=== PATIENT | female | born 1990 | race Caucasian/White ===

== ENCOUNTER 2016-11-17 10:10 | Inpatient (IN) | payer OTHER ==
[~2016-11-17 10:10] MED LIST: ATARAX,VISTARIL25 MG PO; CELEXA10 MG PO; CORTISONE57 GM TP; DANDRUFF SHAMP TP; NIX 5% CREAM60 GM TP; PROAIR HFA8.5 GM IH; REMERON15 M2 PO
[2016-11-17] MEDS ORDERED: ADDERALL20 MG PO (11:59)
[2016-11-17] MEDS ORDERED: ZUBSOLV 8.6-2.1 EACH SL (11:59)
[2016-11-17] MEDS ORDERED: CLONAZEPAM1 MG PO (12:00)
[2016-11-17] MEDS ORDERED: SOMA350 MG PO (12:00)
[2016-11-17] MEDS ORDERED: GABAPENTIN300 MG PO (12:00)
[2016-11-17] MEDS ORDERED: CLARITIN10 M3 PO (12:01)
[2016-11-17 12:02] LABS: HEMATOCRIT 30.7 % (36.0-46.0); MCH 21.2 PG (29.0-34.0); MCHC 30.9 G/DL (30.0-36.0); MCV 68.5 FL (83-99); MEAN PLAT.VOLUME 11.9 uM^3 (9.5-12.4); PLATELET COUNT 241 K/uL (156-360); RBC DIS.WIDTH-CV 18.3 % (11.8-14.6); RBC DIS.WIDTH-SD 44.3 % (39-53); RED BLOOD COUNT 4.48 M/uL (3.80-5.20); WHITE BLOOD COUNT 12.2 K/uL (4.1-10.2)
[2016-11-17] MEDS ORDERED: OXYCODONE HCL10 MG PO (12:03)
[2016-11-17] MEDS ORDERED: TOPAMAX25 MG PO (12:03)
[2016-11-17] MEDS ORDERED: EFFEXOR XR150 MG PO (12:04)
[2016-11-17] MEDS ORDERED: TRAZODONE HCL150 MG PO (12:04)
[2016-11-17 12:05] LABS: CHLORIDE 103 mEq/L (99-109); POTASSIUM 2.9 mEq/L (3.7-5.4); SODIUM 136 mEq/L (136-147)
[2016-11-17 12:07] LABS: GLUCOSE 96 mg/dL (70-99)
[2016-11-17 12:08] LABS: ANION GAP 13 MEQ/L (2-14)
[2016-11-17 12:10] LABS: SERUM ETHYL ALCOHOL < 10 mg/dL
[2016-11-17 12:11] LABS: GFR ESTIMATE (CALCULATED) > 59 mL/min/; UREA NITROGEN (BUN) 13 mg/dL (9-23)
[2016-11-17 13:05] LABS: AMPHETAMINE PRESUMPTIVE POSITIVE (500 ng/mL); BENZODIAZEPINES PRESUMPTIVE POSITIVE (150 ng/mL); COCAINE PRESUMPTIVE POSITIVE (150 ng/mL); METHADONE PRESUMPTIVE POSITIVE (200 ng/mL); METHAMPHETAMINE PRESUMPTIVE POSITIVE (500 ng/mL); OPIATES (MORPHINE) PRESUMPTIVE POSITIVE (100 ng/mL); PHENCYCLIDINE PRESUMPTIVE POSITIVE (25 ng/mL); THC CANNABINOIDS NEGATIVE (50 ng/mL); TRICYCLIC ANTIDEPRESSANTS NEGATIVE (300 ng/mL)
[2016-11-17 13:06] LABS: BARBITURATES NEGATIVE (200 ng/mL); INTERNAL CONTROLS VALID? YES; OXYCODONE PRESUMPTIVE POSITIVE (100 ng/mL); PROPOXYPHENE NEGATIVE (300 ng/mL)
[2016-11-17 13:07] LABS: ADD MEDTOX COMMENT Y
[2016-11-17 13:49] LABS: BENZODIAZEPINES, URINE SCREEN POSITIVE (200 ng/mL); PHENCYCLIDINE QUANT VALUE 0 NG/ML
[2016-11-18 13:57] VITALS: BP 124/68
[2016-11-18 14:28] VITALS: BP 124/68
[2016-11-18 15:28] VITALS: BP 124/76
[2016-11-19 07:56] VITALS: BP 125/63
[2016-11-24] MEDS ORDERED: DESYREL 150 MG150 MG PO (09:12)
== END 2016-11-19 11:40 | disposition left against medical advice (07) | DRG 882 ==
LOC: EME 10:10 → 1WEST 11-18 09:49 → EDOF 11-18 09:49 → 1WEST 11-18 14:00
DX: F43.24 Adjustment disorder with disturbance of conduct (principal); F32.9 Major depressive disorder, single episode, unspecified; R45.851 Suicidal ideations; E87.6 Hypokalemia; F11.10 Opioid abuse, uncomplicated; F17.200 Nicotine dependence, unspecified, uncomplicated; F41.9 Anxiety disorder, unspecified; J45.909 Unspecified asthma, uncomplicated; B19.20 Unspecified viral hepatitis C without hepatic coma; F43.10 Post-traumatic stress disorder, unspecified; Z91.410 Personal history of adult physical and sexual abuse; Z91.14 Patient's other noncompliance with medication regimen
CPT/HCPCS: 80048; 84999; 85027; 90839; 99281; 99285; G0480

== ENCOUNTER 2016-11-21 13:53 | Emergency (ER) | payer OTHER ==
[~2016-11-21] VITALS: Ht 160 cm; Wt 52.3 kg
[~2016-11-21 13:53] MED LIST changes: +ADDERALL20 MG PO; +CLARITIN10 M3 PO; +CLONAZEPAM1 MG PO; +EFFEXOR XR150 MG PO; +GABAPENTIN300 MG PO; +OXYCODONE HCL10 MG PO; +SOMA350 MG PO; +TOPAMAX25 MG PO; +TRAZODONE HCL150 MG PO; +ZUBSOLV 8.6-2.1 EACH SL
[2016-11-21 14:40] VITALS: BP 141/92
[2016-11-21] MEDS ORDERED: NAPROSYN500 MG PO (16:43)
[2016-11-22] MEDS ORDERED: CLONAZEPAM2 MG PO (00:31)
[2016-11-22] MEDS ORDERED: AMPHETAMINE SAL20 MG PO (00:32)
[2016-11-22] MEDS ORDERED: SOMA350 MG PO (00:32)
[2016-11-24] MEDS ORDERED: DESYREL 150 MG150 MG PO (09:12)
== END 2016-11-21 17:33 | disposition home or self-care (01) ==
LOC: EXP 13:53 → EME 13:53 → EXP 17:33
DX: S93.401A Sprain of unspecified ligament of right ankle, initial encounter (principal); W19.XXXA Unspecified fall, initial encounter; Y93.02 Activity, running; F17.200 Nicotine dependence, unspecified, uncomplicated
CPT/HCPCS: 73610; 73630; 99281; 99284

== ENCOUNTER 2016-11-21 20:51 | Observation (INO) | payer OTHER ==
[~2016-11-21] VITALS: Ht 160 cm; Wt 55.3 kg
[~2016-11-21 20:51] MED LIST changes: +NAPROSYN500 MG PO
[2016-11-21 21:31] LABS: HEMATOCRIT 33.2 % (36.0-46.0); MCH 20.9 PG (29.0-34.0); MCHC 29.5 G/DL (30.0-36.0); MCV 70.8 FL (83-99); MEAN PLAT.VOLUME 11.1 uM^3 (9.5-12.4); PLATELET COUNT 268 K/uL (156-360); RBC DIS.WIDTH-CV 19.5 % (11.8-14.6); RBC DIS.WIDTH-SD 48.7 % (39-53); RED BLOOD COUNT 4.69 M/uL (3.80-5.20); WHITE BLOOD COUNT 8.9 K/uL (4.1-10.2)
[2016-11-21 21:33] LABS: CHLORIDE 107 mEq/L (99-109); SODIUM 140 mEq/L (136-147)
[2016-11-21 21:35] LABS: GLUCOSE 88 mg/dL (70-99)
[2016-11-21 21:37] LABS: ANION GAP 8 MEQ/L (2-14)
[2016-11-21 21:38] LABS: SERUM ETHYL ALCOHOL < 10 mg/dL
[2016-11-21 21:40] LABS: POTASSIUM 4.1 mEq/L (3.7-5.4); UREA NITROGEN (BUN) 10 mg/dL (9-23)
[2016-11-21 21:47] LABS: QUANTITATIVE HCG < 4.0 MIU/ML
[2016-11-21 21:55] LABS: SALICYLATE 11.2 MG/DL (15-30)
[2016-11-21 22:14] LABS: GFR ESTIMATE (CALCULATED) > 59 mL/min/
[2016-11-22 00:06] LABS: AMPHETAMINE NEGATIVE (500 ng/mL); BENZODIAZEPINES NEGATIVE (150 ng/mL); COCAINE NEGATIVE (150 ng/mL); METHAMPHETAMINE NEGATIVE (500 ng/mL); OPIATES (MORPHINE) PRESUMPTIVE POSITIVE (100 ng/mL); PHENCYCLIDINE NEGATIVE (25 ng/mL); THC CANNABINOIDS NEGATIVE (50 ng/mL); TRICYCLIC ANTIDEPRESSANTS NEGATIVE (300 ng/mL)
[2016-11-22 00:07] LABS: BARBITURATES NEGATIVE (200 ng/mL); INTERNAL CONTROLS VALID? YES; MEDTOX DRUG SCREEN COMMENT SENT UPSTAIRS; METHADONE NEGATIVE (200 ng/mL); OXYCODONE NEGATIVE (100 ng/mL); PROPOXYPHENE NEGATIVE (300 ng/mL)
[2016-11-22 00:08] LABS: ADD MEDTOX COMMENT Y
[2016-11-22] MEDS ORDERED: CLONAZEPAM2 MG PO (00:31)
[2016-11-22] MEDS ORDERED: SOMA350 MG PO (00:32)
[2016-11-22] MEDS ORDERED: AMPHETAMINE SAL20 MG PO (00:32)
[2016-11-22 02:45] VITALS: BP 124/81
[2016-11-22 03:15] LABS: TOTAL BILIRUBIN 0.1 mg/dL (0.0-1.0)
[2016-11-22 03:16] LABS: ALKALINE PHOSPHATASE 58 IU/L (3-129)
[2016-11-22 03:18] LABS: DIRECT BILIRUBIN 0.1 mg/dL (0.0-0.3)
[2016-11-22 04:23] LABS: OPIATES QUANTITATIVE VALUE 0 NG/ML
[2016-11-22 04:37] VITALS: BP 109/58
[2016-11-22 07:07] VITALS: BP 118/74
[2016-11-22 07:36] LABS: ALKALINE PHOSPHATASE 45 IU/L (3-129); ANION GAP 7 MEQ/L (2-14); CHLORIDE 109 MEQ/L (99-109); GFR ESTIMATE (CALCULATED) > 59 mL/min/; SAMPLE HEMOLYSIS CHECK 0; SAMPLE ICTERIC CHECK 0; SAMPLE LIPEMIA CHECK 0; SODIUM 138 MEQ/L (136-147); TOTAL BILIRUBIN 0.2 MG/DL (0.0-1.0); UREA NITROGEN (BUN) 10 mg/dL (9-23)
[2016-11-22 07:37] LABS: GLUCOSE 115 mg/dL (70-99); POTASSIUM 5.3 MEQ/L (3.7-5.4)
[2016-11-22 09:02] LABS: HEMATOCRIT 28.9 % (36.0-46.0); MCH 21.8 PG (29.0-34.0); MCHC 30.8 G/DL (30.0-36.0); MCV 70.8 FL (83-99); MEAN PLAT.VOLUME 11.6 uM^3 (9.5-12.4); PLATELET COUNT 245 K/uL (156-360); RBC DIS.WIDTH-CV 19.4 % (11.8-14.6); RBC DIS.WIDTH-SD 49.1 % (39-53); RED BLOOD COUNT 4.08 M/uL (3.80-5.20); WHITE BLOOD COUNT 6.6 K/uL (4.1-10.2)
[2016-11-24] MEDS ORDERED: DESYREL 150 MG150 MG PO (09:12)
== END 2016-11-22 12:18 ==
LOC: EME 20:51 → EDOF 11-22 01:24 → 5WEST 11-22 01:24 → EDOF 11-22 01:24 → 5WEST 11-22 02:36
PROVIDERS: Hospitalist
DX: T43.212A Poisoning by selective serotonin and norepinephrine reuptake inhibitors, intentional self-harm, initial encounter (principal); F19.10 Other psychoactive substance abuse, uncomplicated; F31.9 Bipolar disorder, unspecified; F41.9 Anxiety disorder, unspecified; Z86.19 Personal history of other infectious and parasitic diseases; J45.909 Unspecified asthma, uncomplicated; F17.210 Nicotine dependence, cigarettes, uncomplicated; F90.9 Attention-deficit hyperactivity disorder, unspecified type
CPT/HCPCS: 80048; 80053; 80076; 84702; 84999; 85027; 93005; 99281; 99285; G0378; G0480; J0610; J2060; J7030; J7050